=== PATIENT | female | born 1980 | race Caucasian/White ===

== ENCOUNTER → 2020-04-09 | Outpatient (CLI) | payer OTHER ==
[~2020-04-09] MED LIST: Bromphed DM PO; FLONASE 0.05% N16 GM; PHENERGAN 25 MG25 M1 PO; ZOFRAN4 MG PO
== END ==
LOC: EROP 21:24
DX: R05 Cough (principal); R53.83 Other fatigue; Z20.822 Contact with and (suspected) exposure to COVID-19
CPT/HCPCS: U0002

== ENCOUNTER → 2020-05-27 | Outpatient (CLI) | payer BC, OTHER | LOC: LAB 22:53 | DX: U07.1 COVID-19 (principal) | CPT/HCPCS: 0240U; 87081; 87880 ==

== ENCOUNTER → 2020-08-06 | Outpatient (CLI) | payer BC, OTHER | LOC: CT 16:41 | DX: R10.9 Unspecified abdominal pain (principal); R11.0 Nausea; K76.0 Fatty (change of) liver, not elsewhere classified ==

== ENCOUNTER → 2020-11-08 | Outpatient (CLI) | payer OTHER | LOC: GENOP 18:02 | DX: Z20.822 Contact with and (suspected) exposure to COVID-19 (principal) | CPT/HCPCS: U0002 ==

== ENCOUNTER → 2020-11-26 | Outpatient (CLI) | payer OTHER | LOC: OPSV 23:25 | DX: Z20.822 Contact with and (suspected) exposure to COVID-19 (principal) | CPT/HCPCS: U0002 ==

== ENCOUNTER 2021-01-05 19:29 | Emergency (ER) | payer OTHER ==
[2021-01-05 19:58] LABS: HEMOGLOBIN 14.4 gm/dl (12.3-15.3); RED BLOOD COUNT 4.58 M/UL (4.00-5.10); WHITE BLOOD COUNT 8.4 K/UL (4.5-11.0)
[2021-01-05 20:17] LABS: BUN/CREATININE RATIO 15 (0-10)
== END 2021-01-05 22:55 | disposition home or self-care (01) ==
LOC: ER1 19:29
PROVIDERS: Emergency Medicine
DX: R07.9 Chest pain, unspecified (principal); Z88.8 Allergy status to other drugs, medicaments and biological substances
CPT/HCPCS: 71045; 71260; 80053; 82550; 82553; 83690; 83874; 84439; 84443; 84484; 85025; 85379; 99285; Q9967

== ENCOUNTER → 2021-02-12 | Outpatient (CLI) | payer BC, OTHER | LOC: HEART 5 09:30 | DX: R00.2 Palpitations (principal); R06.02 Shortness of breath; I45.5 Other specified heart block ==

== ENCOUNTER → 2021-02-28 | Outpatient (CLI) | payer BC, OTHER | LOC: ECHO 02-17 13:30 → NM 02-17 15:00 → ECHO 12:50 | DX: R06.02 Shortness of breath (principal); I45.6 Pre-excitation syndrome; I07.1 Rheumatic tricuspid insufficiency | CPT/HCPCS: ECHO; 93017; 93306 ==

== ENCOUNTER → 2021-04-14 | Outpatient (CLI) | payer OTHER | LOC: OPSV 17:24 | DX: Z20.822 Contact with and (suspected) exposure to COVID-19 (principal) | CPT/HCPCS: U0002 ==

== ENCOUNTER → 2021-04-21 | Outpatient (CLI) | payer OTHER | LOC: LAB 15:55 | DX: J02.9 Acute pharyngitis, unspecified (principal) | CPT/HCPCS: 87081; 87880 ==

== ENCOUNTER → 2021-08-01 | Outpatient (CLI) | payer OTHER ==
[2021-08-01 13:02] LABS: HEMOGLOBIN 14.9 gm/dl (12.3-15.3); RED BLOOD COUNT 4.8 M/UL (4.00-5.10); WHITE BLOOD COUNT 8.5 K/UL (4.5-11.0)
[2021-08-01 13:23] LABS: BUN/CREATININE RATIO 12 (0-10)
[2021-08-02 08:16] LABS: VITAMIN D, 25-HYDROXY 29.8 ng/mL (30.0-100.0)
== END ==
LOC: LAB 12:19
PROVIDERS: Family Medicine
DX: R10.9 Unspecified abdominal pain (principal); K59.09 Other constipation; E55.9 Vitamin D deficiency, unspecified; F41.9 Anxiety disorder, unspecified; E53.8 Deficiency of other specified B group vitamins; L65.9 Nonscarring hair loss, unspecified; E66.9 Obesity, unspecified
CPT/HCPCS: 80048; 80061; 80076; 82607; 82652; 84443; 85025